=== PATIENT | male | born 1950 | race Hispanic/Latino ===

== ENCOUNTER → 2017-08-11 | Day surgery (SDC) | payer MEDICARE ==
[2017-08-06 16:44] LABS: BILIRUBIN,URINE NEGATIVE (NEGATIVE); KETONES,URINE NEGATIVE (NEGATIVE); LEUKOCYTE ESTERASE ,URINE NEGATIVE (NEGATIVE); NITRITE,URINE NEGATIVE (NEGATIVE); PROTEIN,URINE DIPSTICK NEGATIVE (NEGATIVE); URINE UROBILINOGEN 0.2 mg/dL (0.2 - 1)
[2017-08-06 16:45] LABS: CLARITY,URINE CLEAR (CLEAR); COLOR,URINE YELLOW (YELLOW)
[2017-08-06 17:08] LABS: BASOPHILS # (AUTO) 0.1 (0.0-0.1); BASOPHILS % 0.8 % (0.0-1.0); EOSINOPHILS # (AUTO) 0.1 (0.0-0.4); EOSINOPHILS % 1.6 % (0.0-6.0); HEMATOCRIT 49.8 % (38.2-49.6); HEMOGLOBIN 16.8 g/dL (14.0-18.0); LYMPHOCYTES # (AUTO) 2.3 (1.0-3.2); LYMPHOCYTES % 25.2 % (18.0-39.1); MEAN CORPUSCULAR HEMOGLOBIN 32.2 pg (28-32); MEAN CORPUSCULAR HGB CONC 33.7 g/dL (31-35); MEAN CORPUSCULAR VOLUME 95.4 fL (81-99); MONOCYTES # (AUTO) 0.8 (0.2-0.8); MONOCYTES % 8.3 % (4.4-11.3); NEUTROPHILS # (AUTO) 5.8 (2.1-6.9); NEUTROPHILS % 63.7 % (38.7-80.0); PLATELET COUNT 179 x10e3/uL (140-360); RED BLOOD COUNT 5.22 x10e6/uL (4.3-5.7); RED CELL DISTRIBUTION WIDTH 12.2 % (11.7-14.4)
--- NOTE | 2017-08-06 17:10 | Diagnostic Imaging Report ---
PROCEDURE: X-RAY CHEST, TWO VIEWS COMPARISON: None. INDICATIONS: PREOP FOR CHOLECYSTITIS FINDINGS: LUNGS: Well-inflated and clear. Pulmonary vascular markings are normal. PLEURA: No effusions or pneumothorax. HEART \T\ MEDIASTINUM: The heart is within normal size-limits. The aorta is ectatic. No hilar lymphadenopathy. BONES \T\ SOFT TISSUES: No focal osseous lesions. CONCLUSION: No acute cardiopulmonary process. Dictated by: Manuel Costa M.D. on 08/06/2017 at 17:11 Electronically approved by: Manuel Costa M.D. on 08/06/2017 at 17:11
[2017-08-06 17:28] LABS: ALANINE AMINOTRANSFERASE 33 IU/L (0-55); ALBUMIN 4.1 g/dL (3.5-5.0); ALKALINE PHOSPHATASE 80 IU/L (40-150); ANION GAP 16.4 mmol/L (8-16); BLOOD UREA NITROGEN 13 mg/dL (7-26); BUN/CREATININE RATIO 13 (6-25); CALCIUM 10.2 mg/dL (8.4-10.2); CARBON DIOXIDE 28 mmol/L (22-29); CHLORIDE 102 mmol/L (98-107); CREATININE, SERUM 1.02 mg/dL (0.72-1.25); EST GLOMERULAR FILTRATION RATE > 60 ML/MIN (60-); GLUCOSE 122 mg/dL (74-118); SODIUM 141 mmol/L (136-145)
[2017-08-06 17:29] LABS: POTASSIUM 5.4 mmol/L (3.5-5.1)
[~2017-08-11] MED LIST: BIOTIN0.5 GM; BIOTIN1 MG; BUPIVACAINE 0.25%/EPI 30ML SDV INJ ONE; CIALIS5 MG; DEXAMETHASONE SOD PHOS INJ 4 MG/ML VIAL ONE; FENTANYL CITRATE/PF 100MCG/2 ML INJ ONE; GLYCOPYRROLATE INJ 1MG/ 5 ML SYR ONE; LANSOPRAZOLE30 MG PO; LIDOCAINE HCL 2% LOCAL INJ 5 ML SDV VIAL INJ ONE; LISINOPRIL10 MG PO; MIDAZOLAM HCL 2 MG/2 ML VIAL ONE; MULTIVITAMINS1 EAC7; NEOSTIGMINE 5 MG/5ML SYR ONE; ONDANSETRON HCL INJ 2 MG/ML VIAL ONE; PHENYLEPHRINE HCL 1% 10 MG/ML VIAL ONE; PROPOFOL IV EMULSION 10 MG/ML 20 ML VIAL ONE; ROCURONIUM BROMIDE 10 MG/ML 5ML VIAL ONE; SEVOFLURANE INHAL SOLN 250 ML PEN BTL ONE
--- OUTSIDE RECORDS SUMMARY | 2017-08-11 06:07 | XMS REPORT ---
Author Author [facility] Address Unknown Phone Unavailable Care Team Providers Care Head Lineman Name Role Phone PREETI HOLCOMB Unavailable Unavailable Problems This patient has no known problems. Allergies, Adverse Reactions, Alerts This patient has no known allergies or adverse reactions. Medications This patient has no known medications. Results Test Description Test Time Test Comments Text Results Atomic Results Result Comments CHEST 2 VIEWS [place] [id number] Patient Name: FIONA MONTAÑO MR #: [id number] : 1950 Age/Sex: 66/M Req # : [id number] Adm Physician: Ordered by: PREETI HOLCOMB MD Report #: [id number] Location: OR Room/Bed: Procedure: [id number] DX/CHEST 2 VIEWS Exam Date: 08/06/17 Exam Time : 1650 REPORT STATUS: Signed PROCEDURE: X-RAY CHEST, TWO VIEWS COMPARISON: None. INDICATIONS: PREOP FOR CHOLECYSTITIS FINDINGS: LUNGS: Well-inflated and clear. Pulmonary vascular markings are normal. PLEURA: No effusions or pneumothorax. HEART T MEDIASTINUM: The heart is within normal size-limits. The aorta is ectatic. No hilar lymphadenopathy. BONES T SOFT TISSUES: No focal osseous lesions. CONCLUSION: No acute cardiopulmonary process. Dictated by: Myles Costa M.D. on 08/06/2017 at 17:11 Electronically approved by: Myles Costa M.D. on 08/06/2017 at 17:11 Dictated By: MYLES COSTA MD 10 Transcribed By: ZOE on 08/06/171710 COPY TO: PREETI HOLCOMB MD
--- NOTE | 2017-08-11 15:15 | Operative Report ---
DATE OF PROCEDURE: August 11, 2017 PREOPERATIVE DIAGNOSES: Cholecystitis and cholelithiasis. POSTOPERATIVE DIAGNOSES: Cholecystitis and cholelithiasis. OPERATION PERFORMED: Laparoscopic cholecystectomy. W[employer] PU[employer] OPERATOR: Dr. Suraj Ramírez. ANESTHESIA: General. COMPLICATIONS: None. ESTIMATED BLOOD LOSS: Minimal. DESCRIPTION OF PROCEDURE: With the patient lying in bed in the supine position under good general endotracheal anesthesia, the abdomen was prepped with Betadine solution and draped in the usual manner. A Veress needle was introduced into the umbilicus and pneumoperitoneum was established without any difficulty. An 11 mm trocar was placed into the umbilicus and a 10 mm video laparoscope was placed into the intra-abdominal cavity. Under direct vision, three 5 mm trocars were placed in the right subcostal region. Video laparoscopy at this point revealed the gallbladder to be covered up with some adhesions and to contain multiple stones. Otherwise, the only other positive finding was to the liver that showed some clear signs of fatty infiltration. Otherwise, the rest the abdominal exploration was within normal limits. The adhesions to the gallbladder were then slowly and carefully taken down. The peritoneum overlying the neck of the gallbladder was then opened and the cystic duct was identified. The cystic duct was followed to its junction with the common duct. Cystic duct was then circumferentially dissected away from the common duct, doubly clipped, and divided. Cystic artery was similarly doubly clipped and divided. The gallbladder was then slowly and carefully taken off of the liver bed using the cautery and scissors and perfect hemostasis was ascertained. The gallbladder was then grasped through the umbilical port and removed without any difficulty. Video laparoscopy was then again carried out. The liver bed was found to perfectly dry. All of the excess fluid was aspirated. The pneumoperitoneum was evacuated and all the trocars were removed under direct vision. The midline fascia at the umbilicus was then closed with a [id number] of 0 Vicryl. All layers were infiltrated on the way out with solution of 0.25% Marcaine. Subcutaneous tissue was approximated with 3-0 Vicryl and the skin was closed with subcuticular 5-0 Vicryl. Benzoin, Steri-Strips, and Band-Aids were applied. The sponge, lap, and needle count was correct. The patient tolerated the procedure well and returned to the recovery room in stable condition. Job#: [id number]
== END | disposition home or self-care (01) ==
LOC: OR 06:04
PROVIDERS: ATTEND Surgery
DX: K80.10 Calculus of gallbladder with chronic cholecystitis without obstruction (principal); K82.8 Other specified diseases of gallbladder; K76.0 Fatty (change of) liver, not elsewhere classified; I10 Essential (primary) hypertension; R42 Dizziness and giddiness; E78.5 Hyperlipidemia, unspecified; K21.9 Gastro-esophageal reflux disease without esophagitis; K57.90 Diverticulosis of intestine, part unspecified, without perforation or abscess without bleeding; Z01.810 Encounter for preprocedural cardiovascular examination; Z01.812 Encounter for preprocedural laboratory examination; Z01.818 Encounter for other preprocedural examination; Z87.891 Personal history of nicotine dependence
CPT/HCPCS: 36415 ×2; 47562; 71046; 80053; 81003; 84132; 85025; 88304; 93005; C1766; J1100; J2001; J2250; J2370; J2405